=== PATIENT | female | born 1945 | race Caucasian/White ===

== ENCOUNTER → 2022-05-29 | Outpatient (CLI) | payer MEDICARE ==
[~2022-05-29] MED LIST: ESTRADIOL0.5 MG PO; Flonase 0.05% N16 GM; LEVOTHYROXINE50 MC8 PO; Lisinopril-Hct1 EAC4 PO; OMEP20ER PO; OXYB5 PO; VALA500 PO
[2022-05-29 19:30] LABS: BASOPHILS ABSOLUTE AUTO 0.05 K/mm3 (0.00-0.23); BASOPHILS PERCENT AUTO 1 % (0-2); EOSINOPHILS ABSOLUTE AUTO 0.04 K/mm3 (0.00-0.68); EOSINOPHILS PERCENT AUTO 1 % (0-6); Hematocrit 35.7 % (33.0-51.0); Hemoglobin 11.8 g/dL (11.5-16.0); IMMATURE GRAN ABSOLUTE AUTO 0.01 K/mm3 (0.00-0.10); IMMATURE GRAN PERCENT AUTO 0 % (0-1); LYMPHOCYTES ABSOLUTE AUTO 1.69 K/mm3 (0.84-5.20); LYMPHOCYTES PERCENT AUTO 25 % (21-46); MONOCYTES ABSOLUTE AUTO 0.48 K/mm3 (0.16-1.47); MONOCYTES PERCENT AUTO 7 % (4-13); Mean Corpuscular HGB 29.5 pg (26.0-34.0); Mean Corpuscular HGB Conc 33.1 g/dL (31.5-36.5); Mean Corpuscular Volume 89 fL (80-100); Mean Platelet Volume 9.3 fL (9.1-12.4); NEUTROPHILS PERCENT AUTO 67 % (41-73); Platelet Count 327 K/mm3 (150-400); RDW Standard Deviation 43.1 fL (35.1-46.3); White Blood Cell Count 6.77 K/mm3 (4.00-11.30)
[2022-05-29 21:12] LABS: Alanine Aminotransfer (ALT/SGP 36 U/L (12-78); Albumin, Blood 3.8 g/dL (3.4-5.0); Albumin/Globulin Ratio 1.1 (0.8-1.8); Alk Phos 101 U/L (50-136); Anion Gap 9 mmol/L (6-16); Aspartate Aminotrans (AST/SGOT 20 U/L (12-37); Bilirubin, Total 0.4 mg/dL (0.1-1.0); Blood Urea Nitrogen 18 mg/dL (8-24); CO2, Blood 26 mmol/L (21-32); Calcium, Blood 9.8 mg/dL (8.5-10.1); Chloride, Blood 104 mmol/L (98-108); Cholesterol 203 mg/dL (50-200); Creatinine, Blood 0.75 mg/dL (0.40-1.00); Globulin, Blood 3.6 g/dL (2.2-4.0); Glomerular Filtration Rate 83 (60-); Glucose, Blood 110 mg/dL (70-99); HDL Cholesterol 51 mg/dL (>39); LDL/HDL RATIO 2.4; Low Density Lipoprotein Chol 120 mg/dL (0-110); Potassium, Blood 3.5 mmol/L (3.5-5.5); Sodium, Blood 139 mmol/L (136-145); Thyroid Stimulating Hormone 0.635 uIU/mL (0.360-4.800); Total Protein, Blood 7.4 g/dL (6.4-8.2); Triglycerides 160 mg/dL (30-160); Very Low Density Lipoprot Chol 32 mg/dL (6-32)
== END | disposition home or self-care (01) ==
LOC: LAB 12:00 → LAB SHORT 12:00
PROVIDERS: Family Medicine
DX: Z51.81 Encounter for therapeutic drug level monitoring (principal); Z79.899 Other long term (current) drug therapy
CPT/HCPCS: 80053; 80061; 84443; 85025

== ENCOUNTER → 2023-09-24 | Outpatient (CLI) | payer MEDICARE ==
[2023-09-25 08:08] LABS: BASOPHILS ABSOLUTE AUTO 0.07 K/mm3 (0.00-0.23); BASOPHILS PERCENT AUTO 1 % (0-2); EOSINOPHILS ABSOLUTE AUTO 0.15 K/mm3 (0.00-0.68); EOSINOPHILS PERCENT AUTO 2 % (0-6); Hematocrit 34.1 % (33.0-51.0); Hemoglobin 11.6 g/dL (11.5-16.0); IMMATURE GRAN ABSOLUTE AUTO 0.03 K/mm3 (0.00-0.10); IMMATURE GRAN PERCENT AUTO 0 % (0-1); LYMPHOCYTES PERCENT AUTO 23 % (21-46); MONOCYTES ABSOLUTE AUTO 0.39 K/mm3 (0.16-1.47); MONOCYTES PERCENT AUTO 5 % (4-13); Mean Corpuscular HGB 32.4 pg (26.0-34.0); Mean Corpuscular Volume 95 fL (80-100); Mean Platelet Volume 10.2 fL (9.1-12.4); NEUTROPHILS ABSOLUTE AUTO 5.52 K/mm3 (1.96-9.15); NEUTROPHILS PERCENT AUTO 69 % (41-73); Platelet Count 309 K/mm3 (150-400); RDW Coefficient Variation 13.3 % (11.7-14.2); RDW Standard Deviation 46.5 fL (35.1-46.3); Red Blood Cell Count 3.58 M/mm3 (3.80-5.20); White Blood Cell Count 7.96 K/mm3 (4.00-11.30)
[2023-09-25 08:32] LABS: Albumin, Blood 3.7 g/dL (3.4-5.0); Bilirubin, Total 0.2 mg/dL (0.1-1.0); Bun/Creatinine Ratio 22.5 (12.0-20.0); Calcium, Blood 8.8 mg/dL (8.5-10.1); Creatinine, Blood 0.84 mg/dL (0.40-1.00); Globulin, Blood 3.6 g/dL (2.2-4.0); Potassium, Blood 3.3 mmol/L (3.5-5.5); Thyroid Stimulating Hormone 1.15 uIU/mL (0.360-4.800); Total Protein, Blood 7.3 g/dL (6.4-8.2)
== END | disposition home or self-care (01) ==
LOC: LAB SHORT 13:30 → LAB 13:30
PROVIDERS: Family Medicine
DX: Z51.81 Encounter for therapeutic drug level monitoring (principal); Z79.899 Other long term (current) drug therapy
CPT/HCPCS: 80053; 84443; 85025

== ENCOUNTER 2024-03-02 08:26 | Inpatient (IN) | payer MEDICARE ==
[2024-03-02] VITALS (17 sets, daily range): BP systolic 106–149; BP diastolic 53–87
[~2024-03-02] VITALS: Ht 162.6 cm; Wt 79.0 kg
[2024-03-02 09:19] LABS: Source, Urine Clean Catch
[2024-03-02 09:27] LABS: Appearance, Urine Clear (Clear); Bilirubin, Urine Neg (Neg); Blood, Urine 2+ (Neg); Color, Urine Yellow (P-Yellow); Glucose Qualitative, Urine Neg (Neg); Ketones, Urine Neg (Neg); Leukocyte Esterase, Urine Neg (Neg); Nitrite, Urine Neg (Neg); Protein, Urine 1+ (Neg); Urobilinogen, Urine NORM (Normal)
[2024-03-02 09:35] LABS: Bacteria Rare /hpf; Squamous Epithelial Cells Few /hpf (Few); White Blood Cells, Urine 0-2 /hpf (0-5)
[2024-03-02 09:48] LABS: BASOPHILS ABSOLUTE AUTO 0.05 K/mm3 (0.00-0.23); BASOPHILS PERCENT AUTO 0 % (0-2); EOSINOPHILS ABSOLUTE AUTO 0.05 K/mm3 (0.00-0.68); EOSINOPHILS PERCENT AUTO 0 % (0-6); Hematocrit 35.6 % (33.0-51.0); Hemoglobin 12.5 g/dL (11.5-16.0); IMMATURE GRAN ABSOLUTE AUTO 0.03 K/mm3 (0.00-0.10); IMMATURE GRAN PERCENT AUTO 0 % (0-1); LYMPHOCYTES ABSOLUTE AUTO 1.67 K/mm3 (0.84-5.20); LYMPHOCYTES PERCENT AUTO 13 % (21-46); MONOCYTES PERCENT AUTO 5 % (4-13); Mean Corpuscular HGB 32.4 pg (26.0-34.0); Mean Corpuscular HGB Conc 35.1 g/dL (31.5-36.5); Mean Corpuscular Volume 92 fL (80-100); Mean Platelet Volume 9.2 fL (9.1-12.4); NEUTROPHILS ABSOLUTE AUTO 10.37 K/mm3 (1.96-9.15); NEUTROPHILS PERCENT AUTO 81 % (41-73); Platelet Count 284 K/mm3 (150-400); RDW Coefficient Variation 13.1 % (11.7-14.2); RDW Standard Deviation 44.2 fL (35.1-46.3); Red Blood Cell Count 3.86 M/mm3 (3.80-5.20); White Blood Cell Count 12.77 K/mm3 (4.00-11.30)
[2024-03-02 10:07] LABS: Albumin, Blood 3.6 g/dL (3.4-5.0); Albumin/Globulin Ratio 0.9 (0.8-1.8); Bilirubin, Total 0.8 mg/dL (0.1-1.0); Bun/Creatinine Ratio 15.2 (12.0-20.0); Calcium, Blood 9.4 mg/dL (8.5-10.1); Creatinine, Blood 0.79 mg/dL (0.40-1.00); Globulin, Blood 3.9 g/dL (2.2-4.0); Total Protein, Blood 7.5 g/dL (6.4-8.2)
[2024-03-02] MEDS ORDERED: TROSPIUM CHLORI20 M1 PO (10:47)
[2024-03-02] MEDS ORDERED: LISINOPRIL-HCT1 EAC1 PO (10:47)
[2024-03-02] MEDS ORDERED: Lactated Ringer's 1,000 ML IV SCH ×3 (11:00→14:05)
[2024-03-02] MEDS ORDERED: Potassium Chl 20MEQ/Water100ML 100 ML IV ONE (11:00)
[2024-03-02] MEDS ORDERED: Ampicillin Sod/Sulbactam Sod 3 GM in NS 100 ML IV ONE (11:00)
[2024-03-02] MEDS ORDERED: Bupivacaine 0.5% HCl 5 MG/ML 30MLVIAL ONE (11:51)
[2024-03-02] MEDS ORDERED: FentaNYL Citrate 50 MCG/ML 2 ML Injection ONE ×2 (11:57→14:21)
[2024-03-02] MEDS ORDERED: propofoL 20 ML IV ONE (11:57)
[2024-03-02] MEDS ORDERED: Sugammadex Sodium 200 MG/2ML SDV (100 MG/ML) ONE (11:57)
[2024-03-02] MEDS ORDERED: Ondansetron HCl 2 MG / ML 2ML Vial ONE ×2 (11:58→14:44)
[2024-03-02] MEDS ORDERED: Rocuronium Bromide 10 MG/ML 5ML Injection IV ONE ×2 (11:58→13:16)
[2024-03-02] MEDS ORDERED: Dexamethasone Sod Phos 10 MG/ML 1ML VIAL ONE (11:58)
--- NOTE | 2024-03-02 12:45 | NUR ---
[facility] PRE-OP NOTE PT A&OX4, BREATHING RA, VSS, PT CALM AND IN NO APPARENT DISTRESS, AT BEDSIDE. PT AMBULATORY. RINGS AND EARRINGS GIVEN TO , DENTURES TO PACU. Patient confirms NPO status and agrees with scheduled surgery. Pre-Op teaching done. Pt verbalizes understanding. Patient States Post-Procedure ride home has been arranged.
[2024-03-02] MEDS ORDERED: Phenylephrine HCl 100 MCG/ML-NS 10MLSYR (1MG/10ML) ONE (12:56)
[2024-03-02] MEDS ORDERED: HYDROcodone 5-APAP 325 TAB PO PRN (14:05)
[2024-03-02] MEDS ORDERED: FentaNYL Citrate 50 MCG/ML 2 ML Injection IV PRN (14:05)
[2024-03-02] MEDS ORDERED: Acetaminophen 325 MG TABLET PO PRN (14:05)
[2024-03-02] MEDS ORDERED: Ondansetron HCl 2 MG / ML 2ML Vial IV PRN (14:05)
--- NOTE | 2024-03-02 15:15 | NUR ---
arrival from pacu PT ARRIVED FROM PACU, SLID TO BED WITH SLIDE SHEET. PT TOLERATED WELL, REPORTED SOME NAUSEA WITH TRANSPORT ON GURNEY, RESOLVED ONCE AT REST IN BED. SHE DENIES PAIN AT THIS TIME. LAP SITES REMAIN CDI WITH GAUZE X3. K RIDER FINISHING INFUSION AT THIS TIME. PT TOLERATING WELL. PROVIDED WITH WATER AND JELLO FOR PATIENT ONCE TOLERATING, SHE IS PLANNING ON ATTEMPTING TO SLEEP AT THIS TIME. CALL LIGHT PROVIDED. NO FURTHER QUESTIONS AT THIS TIME.
[2024-03-02] MEDS ORDERED: Ampicillin Sod/Sulbactam Sod 3 GM in NS 100 ML IV SCH (18:00)
[2024-03-02] MEDS ORDERED: NS 250 ML IV PRN (18:05)
--- NOTE | 2024-03-02 18:12 | NUR ---
SHIFT SUMMARY LAP SITES REMAIN CDI, PT HAS BEEN UP AND VOIDED. TOLERATING PO WELL. NAUSEA RESOLVED AT THIS TIME. PLAN IS TO REMAIN ON CLEARS TONIGHT AND POSSIBLE DISCHARGE TOMORROW.
[2024-03-02] MEDS ORDERED: Lactobacil 2-S.Thermo-Bifido 1 1 Cap PO SCH (21:00)
[2024-03-03 03:36] VITALS: BP 107/70
--- NOTE | 2024-03-03 04:06 | NUR ---
SHIFT SUMMARY PT SLEPT WELL T/O NIGHT. NO ACUTE CHANGES. LAP SITES X3 TO ABD REMAIN CDI. PT REPORTS FLATUS. VOIDING SPONTANEOUSLY. FARZANEH CLEAR LIQS. 1 NORCO FOR PAIN MANAGEMENT. SBA TO RESTROOM. IV ABX + IVF PER ORDERS. USES CALL LIGHT APPROPRIATELY.
[2024-03-03 06:09] LABS: Bun/Creatinine Ratio 14.3 (12.0-20.0); Calcium, Blood 8.6 mg/dL (8.5-10.1); Creatinine, Blood 0.7 mg/dL (0.40-1.00); Potassium, Blood 3.3 mmol/L (3.5-5.5)
[2024-03-03 07:24] VITALS: BP 128/69
[2024-03-03] MEDS ORDERED: Enoxaparin 40 MG/0.4 ML SYR SC SCH (09:00)
[2024-03-03 14:33] VITALS: BP 127/65
--- NOTE | 2024-03-03 17:39 | NUR ---
SHIFT SUMMARY PATIENT IS POD1 LAP DIVERTICULECTOMY LAP SITES X3 WITH GAUZE AND TEGADERM, CDI. PATIENT IS SBA TO BATHROOM VOIDING, PASSING GAS. TOLERATING PO INTAKE. ON FL DIET. TOLERATING PAIN MEDICATION. DENIES N/V, N/T. VSS. CALL LIGHT IN REACH.
[2024-03-03] MEDS ORDERED: ValACYClovir HCL 500 MG Tab PO PRN (18:40)
[2024-03-03 19:12] VITALS: BP 129/59
[2024-03-03] MEDS ORDERED: Trospium Chloride 20 MG Tab PO SCH ×2 (21:00)
[2024-03-04 03:50] VITALS: BP 125/65
--- NOTE | 2024-03-04 04:23 | NUR ---
SHIFT SUMMARY NO ACUTE CHANGES. LAP SITES X3 TO ABD REMAIN CDI. PT REPORTS FLATUS. VOIDING SPONTANEOUSLY. FARZANEH FULL LIQS. 1 NORCO FOR PAIN MANAGEMENT. AMBULATES HALLWAY INDEPENDENTLY. IV ABX PER ORDERS. USES CALL LIGHT APPROPRIATELY.
[2024-03-04] MEDS ORDERED: Omeprazole 20 MG CapCR PO SCH (06:00)
[2024-03-04] MEDS ORDERED: Levothyroxine Sodium 0.05 MG Tab PO SCH (06:00)
[2024-03-04 08:01] VITALS: BP 153/81
[2024-03-04] MEDS ORDERED: Amoxicillin/Clavulanate K 875 MG Tab PO SCH (09:00)
[2024-03-04] MEDS ORDERED: Ibuprofen 400 MG Tab PO PRN (09:00)
[2024-03-04] MEDS ORDERED: Lisinopril 20 MG Tab PO SCH (09:00)
[2024-03-04] MEDS ORDERED: Ibuprofen 400 MG Tab PO ONE (09:00)
[2024-03-04] MEDS ORDERED: HydroCHLOROthiazide 25 mg Tab PO SCH (09:00)
[2024-03-04 10:33] VITALS: BP 156/82
[2024-03-04] MEDS ORDERED: Norco 5-325 Ta1 EACH PO (12:13)
--- NOTE | 2024-03-04 13:30 | NUR ---
DISCHARGE NOTE: PATIENT AND PATIENTS FAMILY MEMEBER WERE BOTH EDUCATED ON DISCHARGE INSTRUCTIONS. BOTH VERBALIZED UNDERSTANDING OF INSTRUCTIONS AND HAD NO FURTHER QUESTIONS AT THIS TIME. HARD PERSCRIPTION WAS GIVEN TO PATIENTS FAMILY MEMBER WHICH SHE PLACED IN HER PERSONAL PURSE. PAIN IS MANAGED WITH PO PAIN MEDS. HER ABD HAS X3 LAP SITES ONE WITH WOUND GLUE AND THE OTHER TWO WITH STERI STRIPS WHICH WERE ALL C/D/I. PATIENT DENIES NAUSEA OR VOMITING. SHE IS TOLERATING PO INTAKE AND IS VOIDING/PASSING GAS. PATIENT IS DRESSED AND HAS PERSONAL ITEMS IN THE ROOM GATHERED. PATIENT WAS WHEELCHAIRED OUT TO FAMILY MEMBERS CAR TO BE TAKEN HOME.
== END 2024-03-04 13:30 | disposition home or self-care (01) | DRG 331 ==
LOC: ER 08:26 → SURS 11:33
PROVIDERS: Physician Assistant; ADMIT Surgery
PROC: 0DB84ZZ Excision of Small Intestine, Percutaneous Endoscopic Approach (ICD-10-PCS; principal; 2024-03-02 12:15)
DX: Q43.0 Meckel's diverticulum (displaced) (hypertrophic) (principal); I10 Essential (primary) hypertension; E87.6 Hypokalemia; K21.9 Gastro-esophageal reflux disease without esophagitis; E03.9 Hypothyroidism, unspecified; Z90.710 Acquired absence of both cervix and uterus; Z98.890 Other specified postprocedural states; Z88.5 Allergy status to narcotic agent; Z79.899 Other long term (current) drug therapy; Z79.890 Hormone replacement therapy; Z79.2 Long term (current) use of antibiotics; Z90.49 Acquired absence of other specified parts of digestive tract; Z98.1 Arthrodesis status
CPT/HCPCS: 36415; 74177; 80048; 80053; 81001; 83690; 85025; 88307; 93005; 93010; 94762; 96365-59; 96368; 99285-25; A9270; J0295; J1100; J1650; J2371; J2405; J2704; J3010; J3480; J7050; J7120; Q9967

== ENCOUNTER → 2024-07-17 | Outpatient (CLI) | payer MEDICARE ==
[~2024-07-17] MED LIST changes: +B-121000 MC3; +Diflucan150 MG PO; +ESTRADIOL42.5 GM VAG; +HYDROCODONE-AC1 EA19 PO; +IBUP800 PO; +LISINOPRIL-HCT1 EAC1 PO; +MIRABEGRON ER50 MG; +Norco 5-325 Ta1 EACH PO; +PRILOSEC PO; +TROSPIUM CHLORI20 M1 PO
[2024-07-17 20:03] LABS: Free Thyroxine 1.25 ng/dL (0.70-1.60); Thyroid Stimulating Hormone 2.03 uIU/mL (0.360-4.800); Triiodothyronine, Free 2.38 pg/mL (2.18-3.98)
[2024-07-17 20:04] LABS: Albumin, Blood 3.8 g/dL (3.4-5.0); Albumin/Globulin Ratio 1.1 (0.8-1.8); Bilirubin, Total 0.3 mg/dL (0.1-1.0); Bun/Creatinine Ratio 29.5 (12.0-20.0); Calcium, Blood 9.3 mg/dL (8.5-10.1); Creatinine, Blood 0.75 mg/dL (0.40-1.00); Globulin, Blood 3.6 g/dL (2.2-4.0); Potassium, Blood 3.6 mmol/L (3.5-5.5); Total Protein, Blood 7.4 g/dL (6.4-8.2)
== END ==
LOC: LAB SHORT 09:59 → LAB 09:59
PROVIDERS: Family Medicine
DX: R63.5 Abnormal weight gain (principal)
CPT/HCPCS: 80053; 84439; 84443; 84481

== ENCOUNTER 2024-08-04 09:05 | Day surgery (SDC) | payer MEDICARE ==
[~2024-08-04] VITALS: Ht 162.6 cm; Wt 76.7 kg
[2024-08-04] MEDS ORDERED: Lactated Ringer's 1,000 ML IV ONE ×2 (09:25→10:43)
[2024-08-04] MEDS ORDERED: propofoL 50 ML IV ONE ×2 (09:32→11:33)
--- NOTE | 2024-08-04 10:04 | NUR ---
08/04/24 1004 HUMA FERNANDEZ PT, WHO HAS BEEN IN CONTACT WITH CHARGE NURSE NARESH, AND ANSWERING SERVICE, WAS BROUGHT IN TO PRE OP AREA. PER PATIENT REPORTS SHE WAS VOMITING T/O NIGHT AFTER INGESTING SUTAB LAST NIGHT. PT WAS UNABLE TO TAKE SECOND DOSE OF SUTAB THIS MORNING PER ALLYSSA INFANTE. PT PROVIDED ENEMA AND INSTRUCTIONS AND PLACED IN PRE OP BATHROOM. AFTER FIRST ENEMA, PT WAS ABLE TO VOID BROWN LIQUID STOOL, WHICH WAS NOT ABLE TO BE SEEN THROUGH. PATIENT IS AGREEABLE TO SECOND ENEMA, WILL PROCEED WITH THIS AND CONTINUE TO MONITOR.
--- NOTE | 2024-08-04 12:11 | NUR ---
08/04/24 1211 HUMA FERNANDEZ PT TO STEP DOWN AND COMPLAINS OF PAIN IN ABDOMEN, PT EDUCATED ON POSSIBLE CAUSES POST PROCEDURE AND ENCOURAGED TO FART/PASS GAS OR BURP. SHE IS ABLE TO BURP AND IS TOLERATING PO INTAKE. PT DENIES NAUSEA. IV DC'D WNL, ENGAGED IN DC INSTRUCTIONS, AT BEDSIDE.
[2024-08-04 12:14] VITALS: BP 140/85
== END 2024-08-04 12:15 | disposition home or self-care (01) ==
LOC: ORSCSDS 09:05
PROVIDERS: Surgery
PROC: 0DBH8ZX Excision of Cecum, Via Natural or Artificial Opening Endoscopic, Diagnostic (ICD-10-PCS; principal; 2024-08-04 10:45)
PROC: 0DBK8ZX Excision of Ascending Colon, Via Natural or Artificial Opening Endoscopic, Diagnostic (ICD-10-PCS; principal; 2024-08-04 10:45)
DX: K59.00 Constipation, unspecified (principal); Z86.010 Personal history of colon polyps; D12.2 Benign neoplasm of ascending colon; D12.0 Benign neoplasm of cecum; I10 Essential (primary) hypertension; E05.90 Thyrotoxicosis, unspecified without thyrotoxic crisis or storm; Z79.899 Other long term (current) drug therapy; K57.30 Diverticulosis of large intestine without perforation or abscess without bleeding
CPT/HCPCS: 88305; J2704; J7120